=== PATIENT | male | born 1960 | race Caucasian/White ===

== ENCOUNTER → 2017-01-29 | Outpatient (CLI) | payer MEDICARE, MEDICAID ==
--- NOTE | 2017-01-29 11:45 | REP ---
Clinical: Lung screening. History smoking. Comparison: None Technique: Axial low-dose noncontrast images from the thoracic inlet to the upper abdomen using lung screening technique. Findings: The lung [place] are well-aerated. 5 mm noncalcified nodule in the right middle lobe (image 60), and left lower lobe (image 70), as well as 4 mm noncalcified nodule in the periphery of the left lower lobe (image 73) are identified. No consolidation or mass lesion is appreciated. No pleural effusion/reaction or pneumothorax. Tracheobronchial tree is patent. Mediastinum demonstrates mild atherosclerotic changes of the coronary arteries without cardiomegaly. Impression: Lung-RADS category III. Recommendations include 6-month follow-up low-dose CT screening. Signed by Jorge Kirby MD 01/29/2017 11:36 A
== END ==
LOC: M RAD 10:37
PROVIDERS: ATTEND Internal Medicine Pulmonary Disease
DX: Z12.2 Encounter for screening for malignant neoplasm of respiratory organs (principal); R91.8 Other nonspecific abnormal finding of lung field; J44.9 Chronic obstructive pulmonary disease, unspecified; Z87.891 Personal history of nicotine dependence

== ENCOUNTER → 2017-08-13 | Outpatient (CLI) | payer OTHER, MEDICAID ==
--- NOTE | 2017-08-14 07:40 | REP ---
NONCONTRAST CHEST CT: CLINICAL: Followup pulmonary nodules. COMPARISON: 01/29/2017 FINDINGS: The bilateral lung [place] are well aerated. Mild emphysematous changes cannot be excluded. No consolidation, effusion or pneumothorax. A few bilateral noncalcified nodules are again identified and direct comparison with prior examination demonstrates no change. No significant mass lesion is appreciated. Tracheobronchial tree is patent. The mediastinum demonstrates normal thoracic aorta and heart/pericardia. No obvious adenopathy. Surrounding musculoskeletal structures are intact. The upper abdomen remains stable. IMPRESSION: Scattered noncalcified pulmonary nodules. No change with direct comparison to the prior examination. Consider 9-12 months followup examination to ensure benignity and chronicity. Signed by Jorge Kirby MD 08/14/2017 07:49 A
== END ==
LOC: M RAD 11:24
PROVIDERS: ATTEND Internal Medicine Pulmonary Disease
DX: R91.8 Other nonspecific abnormal finding of lung field (principal)

== ENCOUNTER → 2018-08-02 | Outpatient (CLI) | payer OTHER, MEDICAID | LOC: M RAD 11:06 | DX: Z12.2 Encounter for screening for malignant neoplasm of respiratory organs (principal); Z87.891 Personal history of nicotine dependence | CPT/HCPCS: G0297 ==

== ENCOUNTER → 2019-08-17 | Outpatient (CLI) | payer MEDICARE, MEDICAID ==
--- NOTE | 2019-08-17 16:50 | REP ---
CT chest without contrast: Low-dose screening exam. History: Nicotine dependence. Comparison chest CT studies August 02, 2018, August 13, 2017, January 29, 2017. CT findings: There is an old healed rib fracture on the right laterally. There are multiple stable subcentimeter noncalcified pulmonary nodules scattered in the left lower lobe, right lower lobe, and right upper lobe. There is a stable cindy fissural nodules on the right. These are all unchanged from comparison study. However, there are two areas of new nodular opacity in the peribronchovascular region of the right lower lobe. There are three nodular opacities adjacent one another and the cluster in the right lower lobe on page 39 of 116 in series 201 of today's study. There are a similar grouping of new ill-defined nodular opacities in the superior segment of the right lower lobe on pages 33, 34, and 35 of 116 in series 201 of today's study. The peribronchovascular position and the clustering suggests the possibility of inflammatory diseases. Short interval follow-up scan is recommended., consider 3 months. Impression: There are two groupings of new peribronchovascular nodular opacities in the right lower lobe question inflammatory disease such as pneumonia. Lung RADS category 4 A. Short interval followup recommended. Otherwise stable nodular densities. Electronically Signed by Luis Parson MD 08/17/2019 05:43 P
== END ==
LOC: M RAD 11:43
PROVIDERS: ATTEND Physician Assistant
DX: Z87.891 Personal history of nicotine dependence (principal)

== ENCOUNTER → 2019-12-02 | Outpatient (CLI) | payer MEDICARE, MEDICAID ==
--- NOTE | 2019-12-02 10:49 | REP ---
CT CHEST WITHOUT IV CONTRAST: CT chest performed without IV contrast and compared to multiple prior studies, most recently 08/17/2019. Sagittal and coronal reconstruction images are performed. The ill-defined nodular opacities in the right lower lobe have resolved, representing resolved inflammatory infiltrate. There are four subcentimeter nodules in the left lower lobe which have remained stable since at least 08/23/2017 exam and are benign. No new nodule is seen bilaterally. There is mild scattered interstitial fibrotic scarring. Heart is not enlarged. There is no pleural or pericardial effusion. Thoracic aorta is normal in caliber. No axillary or mediastinal adenopathy is seen. There are degenerative changes of the spine. IMPRESSION: The ill-defined nodular opacities in the right lower lobe have resolved since the 08/17/2019 exam representing resolution of inflammatory infiltrate. There are four subcentimeter nodular opacities in the left lower lobe which have remained stable since 08/13/2017 and are benign. No new nodule is seen. Recommend followup low dose lung screening CT in 1 year. Electronically Signed by Sriram Boudreaux MD 12/02/2019 10:54 A
== END ==
LOC: M RAD 09:06
PROVIDERS: ATTEND Physician Assistant
DX: R91.8 Other nonspecific abnormal finding of lung field (principal)

== ENCOUNTER → 2020-12-13 | Outpatient (CLI) | payer MEDICARE, MEDICAID ==
--- NOTE | 2020-12-13 10:50 | REP ---
INDICATION: NICOTINE DEPEND COMPARISON: 12/02/2019, 08/17/2019, 08/02/2018 TECHNIQUE: Axial noncontrast images from the thoracic inlet to the upper abdomen using low-dose lung screening technique (LDCT). FINDINGS: Chronic age-related interstitial changes are appreciated. Few scattered small noncalcified pulmonary nodules primarily noted in the periphery of the left lower lobe as well as 5 mm perifissural nodule along the right major fissure remain essentially stable compared through 08/02/2018. The small groupings of nodules identified in the right lung on 08/17/2019 examination have resolved. No new consolidation, suspicious nodule or mass. No effusion. No pneumothorax. Tracheobronchial tree is patent. Ascending thoracic aorta again measures approximately 3.8 cm diameter. IMPRESSION: Lung-RADS category 2. Stable nodules. Management recommendations include annual low-dose CT surveillance. <Electronically signed by Jorge Kirby > 12/13/20 [id number]
== END ==
LOC: M RAD 10:02
PROVIDERS: ATTEND Physician Assistant
DX: Z12.2 Encounter for screening for malignant neoplasm of respiratory organs (principal); R91.8 Other nonspecific abnormal finding of lung field; Z87.891 Personal history of nicotine dependence

== ENCOUNTER → 2022-01-13 | Outpatient (CLI) | payer MEDICARE, MEDICAID | LOC: M RAD 08:44 | PROVIDERS: ATTEND Physician Assistant | DX: Z12.2 Encounter for screening for malignant neoplasm of respiratory organs (principal); Z87.891 Personal history of nicotine dependence ==